=== PATIENT | male | born 1960 | race Two or more races ===

== ENCOUNTER 2025-03-30 21:12 | Inpatient (IN) | payer MEDICAID ==
[~2025-03-30] VITALS: Ht 165.1 cm; Wt 102.1 kg
[2025-03-30 22:11] LABS: ASPARTATE AMINOTRANSFERASE 57 U/L (15-37); CALCIUM, SERUM 7.9 mg/dL (8.5-10.1); CREATININE 1.1 mg/dL (0.6-1.3); SODIUM SERUM 134 mmol/L (136-145); TOTAL PROTEIN, SERUM 6.8 g/dL (6.4-8.2); UREA NITROGEN, BLOOD 10 mg/dL (7-18)
[2025-03-30 22:16] LABS: LACTIC ACID 3.0 mmol/L (0.4-2.0)
[2025-03-30] MEDS ORDERED: ACETAMINOPHEN 325 MG TABLET ONE (22:19)
[2025-03-30] MEDS: ACETAMINOPHEN 325 MG TABLET PO ONE (22:20)
[2025-03-30] MEDS ORDERED: ONDANSETRON HCL/PF 4 MG/2 ML VIAL ONE (22:25)
[2025-03-30] MEDS ORDERED: MORPHINE SULFATE INJ 4 MG/ML DISP.SYRIN ONE (22:25)
[2025-03-30 22:26] LABS: RED BLOOD CELL COUNT(AUTO) 4.98 MIL/uL (4.5-6.0); RED CELL DISTRIBUTION WIDTH 16.9 % (11.5-15.0); WHITE BLOOD COUNT (AUTO) 13.4 K/uL (4.3-11.0)
[2025-03-30 22:29] LABS: PLATELET COUNT (AUTO) 71 K/uL (150-450)
[2025-03-30] MEDS: IV NS 0.9% 1,000 ML BAG IV ONE (22:39)
[2025-03-30 22:40] LABS: INR 1.3 (0.91-1.10)
[2025-03-30] MEDS: MORPHINE SULFATE INJ 2 MG/ML DISP.SYRIN IV ONE (22:40)
[2025-03-30] MEDS: ONDANSETRON HCL/PF 4 MG/2 ML VIAL IV ONE (22:40)
[2025-03-30 22:45] LABS: LYMPHOCYTES % (MANUAL) 4 % (16-48); MONOCYTES % (MANUAL) 8 % (0-11.0); NEUTROPHILS % (MANUAL) 88 (42-76); PLATELET ESTIMATE DECREASED
[2025-03-30 23:22] LABS: APPEARANCE,URINE CLEAR (CLEAR); BLOOD, URINE 2+ Ery/uL (NEGATIVE); LEUKOCYTE ESTERASE ,URINE TRACE (NEGATIVE); NITRITE, URINE POSITIVE (NEGATIVE); UGLUCOSE NEGATIVE (NEGATIVE)
[2025-03-30 23:25] LABS: ADD URINE CULTURE YES
[2025-03-30] MEDS ORDERED: CIPROFLOXACIN IV RTU 200 ML IV ONE (23:30)
[2025-03-30] MEDS ORDERED: METRONIDAZOLE 500MG/ NS 100ML 100 ML IV ONE (23:30)
[2025-03-30] MEDS: FLAGYL/NS RTU 500 MG/100 ML PIGGYBACK IV ONE (23:30)
[2025-03-31] MEDS: CIPROFLOXACIN IV RTU 400 MG in PREMIX 1 EA IV SCH (00:11)
[2025-03-31 01:00] VITALS: BP 121/80; TEMP 98.2; O2SAT 21
[2025-03-31] MEDS ORDERED: MAG HYDROX/AL HYDROX/SIMETH 30 ML UDC PO PRN (01:00)
[2025-03-31] MEDS ORDERED: MORPHINE SULFATE INJ 4 MG/ML DISP.SYRIN IV PRN (01:00)
[2025-03-31] MEDS ORDERED: ONDANSETRON HCL/PF 4 MG/2 ML VIAL IVP PRN (01:00)
[2025-03-31] MEDS ORDERED: MAGNESIUM HYDROXIDE 30 ML UDC PO PRN (01:00)
[2025-03-31] MEDS ORDERED: ACETAMINOPHEN 325 MG TABLET PO PRN (01:00)
[2025-03-31] MEDS: PIPERACI/TAZO 3.375GM/D5W 50ML PB IV ONE ×2 (01:25→07:01)
[2025-03-31] MEDS: ZOSYN IVPB 3.375 G in IV D5W 50ml IV ONE (01:27)
[2025-03-31 04:00] VITALS: BP 129/77; TEMP 98.4; O2SAT 94
[2025-03-31 06:57] LABS: CALCIUM, SERUM 7.7 mg/dL (8.5-10.1); CREATININE 1.0 mg/dL (0.6-1.3); PHOSPHORUS 3.3 mg/dL (2.5-4.9); SODIUM SERUM 135.0 mmol/L (136-145); UREA NITROGEN, BLOOD 11.0 mg/dL (7-18)
[2025-03-31] MEDS: PIPERACILLIN /TAZOBACTAM 3.375 G in IV D5W 50 ML IV SCH (07:03)
[2025-03-31 08:00] VITALS: BP 114/71; TEMP 97.7; O2SAT 96
[2025-03-31 08:41] LABS: RED BLOOD CELL COUNT(AUTO) 4.83 MIL/uL (4.5-6.0); RED CELL DISTRIBUTION WIDTH 16.9 % (11.5-15.0); WHITE BLOOD COUNT (AUTO) 10.2 K/uL (4.3-11.0)
[2025-03-31 08:59] LABS: PLATELET COUNT (AUTO) 47 K/uL (150-450)
[2025-03-31] MEDS ORDERED: MORPHINE SULFATE INJ 2 MG/ML DISP.SYRIN IV PRN (09:00)
[2025-03-31] MEDS ORDERED: DOSING PER PHARMACY-ZOSYN IV 1 EA EA XX PRN (09:00)
[2025-03-31] MEDS: PANTOPRAZOLE 40 MG VIAL IV SCH (09:29)
[2025-03-31 10:19] LABS: LYMPHOCYTES % (MANUAL) 6 % (16-48); MONOCYTES % (MANUAL) 8 % (0-11.0); NEUTROPHILS % (MANUAL) 86 (42-76); PLATELET ESTIMATE GIANT PLATELET SEEN
[2025-03-31] MEDS ORDERED: CIPROFLOXACIN IV RTU 400 MG in PREMIX 1 EA IV SCH (12:00)
[2025-03-31 16:00] VITALS: BP 141/77; TEMP 98.4; O2SAT 95
[2025-03-31] MEDS: FUROSEMIDE 20 MG/2 ML VIAL IV ONE (18:51)
[2025-03-31 20:00] VITALS: BP 121/75; TEMP 99.3; O2SAT 99
[2025-04-01] VITALS (12 sets, daily range): BP systolic 99–125; BP diastolic 69–79; TEMP 98–99.3; O2SAT 93–98
[2025-04-01 07:57] LABS: CALCIUM, SERUM 7.5 mg/dL (8.5-10.1); CREATININE 1.0 mg/dL (0.6-1.3); SODIUM SERUM 138.0 mmol/L (136-145); UREA NITROGEN, BLOOD 15.0 mg/dL (7-18)
[2025-04-01 09:11] LABS: RED BLOOD CELL COUNT(AUTO) 4.60 MIL/uL (4.5-6.0); RED CELL DISTRIBUTION WIDTH 17.2 % (11.5-15.0); WHITE BLOOD COUNT (AUTO) 8.7 K/uL (4.3-11.0)
[2025-04-01 09:19] LABS: PLATELET COUNT (AUTO) 39 K/uL (150-450)
[2025-04-01 11:34] LABS: LYMPHOCYTES % (MANUAL) 10 % (16-48); MONOCYTES % (MANUAL) 12 % (0-11.0); NEUTROPHILS % (MANUAL) 78 (42-76); PLATELET ESTIMATE GIANT PLATELET SEEN
[2025-04-02] VITALS: BP 99/64; TEMP 98.1; O2SAT 96
[2025-04-02 04:00] VITALS: BP 109/62; TEMP 99; O2SAT 97
[2025-04-02 06:49] LABS: RED BLOOD CELL COUNT(AUTO) 4.66 MIL/uL (4.5-6.0); RED CELL DISTRIBUTION WIDTH 16.8 % (11.5-15.0); WHITE BLOOD COUNT (AUTO) 8.5 K/uL (4.3-11.0)
[2025-04-02 07:07] LABS: PLATELET COUNT (AUTO) 50 K/uL (150-450)
[2025-04-02 07:11] LABS: CALCIUM, SERUM 7.6 mg/dL (8.5-10.1); CREATININE 0.9 mg/dL (0.6-1.3); PHOSPHORUS 1.5 mg/dL (2.5-4.9); SODIUM SERUM 139.0 mmol/L (136-145); UREA NITROGEN, BLOOD 16.0 mg/dL (7-18)
[2025-04-02 07:43] LABS: EOSINOPHILS % (MANUAL) 2 % (0-4); LYMPHOCYTES % (MANUAL) 8 % (16-48); MONOCYTES % (MANUAL) 6 % (0-11.0); NEUTROPHILS % (MANUAL) 81 (42-76); PLATELET ESTIMATE GIANT PLATELET SEEN; REACTIVE LYMPHOCYTES 3 % (0-0)
[2025-04-02 08:00] VITALS: BP 113/67; TEMP 99.1; O2SAT 94
[2025-04-02] MEDS: PANTOPRAZOLE 40 MG TABLET.DR PO SCH (09:10)
[2025-04-02] MEDS ORDERED: POTASSIUM PHOSPHATE MM 15 MMOL in IV NS 0.9% 250 ML IV SCH (10:30)
[2025-04-02] MEDS: POTASSIUM PHOSPHATE MM 7.5 MMOL in IV NS 0.9% 100 ML IV SCH (12:24)
[2025-04-02 16:00] VITALS: BP 110/63; TEMP 100.1; O2SAT 96
[2025-04-02 16:33] LABS: HIV-1/2 ANTIBODY NON REACTIVE (NONREACTIVE)
[2025-04-02] MEDS: METRONIDAZOLE 500MG/ NS 100ML 500 MG in PREMIX 1 EA IV SCH (16:34)
[2025-04-02] MEDS: CEFTRIAXONE 2 G in IV D5W 100 ML IV SCH (17:25)
[2025-04-02 20:00] VITALS: BP 112/74; TEMP 98.4; O2SAT 97
[2025-04-03] VITALS: BP 116/65; TEMP 98.4; O2SAT 96
[2025-04-03 04:00] VITALS: BP 104/66; TEMP 98.2; O2SAT 95
[2025-04-03 06:24] LABS: PLATELET COUNT (AUTO) 78 K/uL (150-450); RED BLOOD CELL COUNT(AUTO) 5.22 MIL/uL (4.5-6.0); RED CELL DISTRIBUTION WIDTH 17.2 % (11.5-15.0); WHITE BLOOD COUNT (AUTO) 10.6 K/uL (4.3-11.0)
[2025-04-03 06:43] LABS: CALCIUM, SERUM 8.1 mg/dL (8.5-10.1); CREATININE 0.9 mg/dL (0.6-1.3); PHOSPHORUS 1.9 mg/dL (2.5-4.9); SODIUM SERUM 138.0 mmol/L (136-145); UREA NITROGEN, BLOOD 13.0 mg/dL (7-18)
[2025-04-03 07:00] VITALS: BP 103/69; TEMP 97.4; O2SAT 95
[2025-04-03 10:07] LABS: EOSINOPHILS % (MANUAL) 7 % (0-4); LYMPHOCYTES % (MANUAL) 18 % (16-48); MONOCYTES % (MANUAL) 6 % (0-11.0); NEUTROPHILS % (MANUAL) 69 (42-76); PLATELET ESTIMATE DECREASED
[2025-04-03 16:00] VITALS: BP 117/71; TEMP 98.7; O2SAT 96
[2025-04-03] MEDS: K PHOS NEUTRAL 250 MG TABLET PO ONE (16:01)
[2025-04-03 20:00] VITALS: BP_SYST 105; BP_SYST 109; BP_DIAS 70; BP_DIAS 73; TEMP 97.3; TEMP 98.2; O2SAT 98
[2025-04-03 21:06] VITALS: BP 105/73; TEMP 98.2; O2SAT 98
[2025-04-04] VITALS (7 sets, daily range): BP systolic 107–123; BP diastolic 65–78; TEMP 97.2–98.1; O2SAT 95–98
[2025-04-04 07:16] LABS: PLATELET COUNT (AUTO) 77 K/uL (150-450); RED BLOOD CELL COUNT(AUTO) 5.18 MIL/uL (4.5-6.0); RED CELL DISTRIBUTION WIDTH 17.6 % (11.5-15.0); WHITE BLOOD COUNT (AUTO) 8.7 K/uL (4.3-11.0)
[2025-04-04 07:51] LABS: CALCIUM, SERUM 7.9 mg/dL (8.5-10.1); CREATININE 0.8 mg/dL (0.6-1.3); PHOSPHORUS 2.1 mg/dL (2.5-4.9); SODIUM SERUM 139.0 mmol/L (136-145); UREA NITROGEN, BLOOD 11.0 mg/dL (7-18)
[2025-04-04 10:46] LABS: BASOPHILS % (MANUAL) 1 % (0.0-2.0); EOSINOPHILS % (MANUAL) 8 % (0-4); LYMPHOCYTES % (MANUAL) 13 % (16-48); MONOCYTES % (MANUAL) 7 % (0-11.0); NEUTROPHILS % (MANUAL) 71 (42-76)
[2025-04-04 10:47] LABS: PLATELET ESTIMATE DECREASED
[2025-04-04 11:38] LABS: INR 1.24 (0.91-1.10)
[2025-04-04] MEDS: METRONIDAZOLE 500 MG TABLET PO SCH (12:09)
[2025-04-04] MEDS: K PHOS NEUTRAL 250 MG TABLET PO ONE (15:18)
[2025-04-05] VITALS (7 sets, daily range): BP systolic 115–124; BP diastolic 61–73; TEMP 97.5–98.5; O2SAT 94–97
[2025-04-05 13:11] LABS: PROTEIN, BODY FLUID 1.3 G/DL
[2025-04-05 14:03] LABS: WBC, BODY FLUID 819 /cu. mm. (0-200)
[2025-04-05 14:37] LABS: APPEARANCE,SPUN,BODY FLUID CLEAR (CLEAR)
[2025-04-05 14:38] LABS: TOTAL VOLUME,BODY FLUID 1750 mL
[2025-04-06] VITALS: BP 113/73; TEMP 97.9; O2SAT 96
[2025-04-06 04:00] VITALS: BP 109/70; TEMP 97.9; O2SAT 96
[2025-04-06 08:12] VITALS: BP 109/73; TEMP 97.7; O2SAT 96
[2025-04-06] MEDS ORDERED: SULF1TAB48 PO (14:11)
[2025-04-06] MEDS ORDERED: SPIR100T5 PO (14:11)
[2025-04-06] MEDS ORDERED: PROP20TA7 PO (14:11)
[2025-04-06] MEDS ORDERED: BUME1TAB9 PO (14:11)
[2025-04-06] MEDS: K PHOS NEUTRAL 250 MG TABLET PO ONE (14:38)
[2025-04-06 16:38] VITALS: BP 116/77; TEMP 97.5; O2SAT 97
== END 2025-04-06 17:59 | disposition home or self-care (01) | DRG 720 ==
LOC: ER 21:16 → TELE 03-31 00:24 → MED 04-06 17:05
PROVIDERS: ADMIT Nurse Practitioner Acute Care; ATTEND Nurse Practitioner Acute Care
PROC: 30233R1 Transfusion of Nonautologous Platelets into Peripheral Vein, Percutaneous Approach (ICD-10-PCS; 2025-03-31)
PROC: 0W993ZZ Drainage of Right Pleural Cavity, Percutaneous Approach (ICD-10-PCS; principal; 2025-04-01)
PROC: 0W993ZZ Drainage of Right Pleural Cavity, Percutaneous Approach (ICD-10-PCS; 2025-04-05)
DX: A41.9 Sepsis, unspecified organism (principal); D84.9 Immunodeficiency, unspecified; J94.8 Other specified pleural conditions; E87.20 Acidosis, unspecified; D69.6 Thrombocytopenia, unspecified; E66.2 Morbid (severe) obesity with alveolar hypoventilation; E87.1 Hypo-osmolality and hyponatremia; K76.6 Portal hypertension; K74.60 Unspecified cirrhosis of liver; B96.20 Unspecified Escherichia coli [E. coli] as the cause of diseases classified elsewhere; N39.0 Urinary tract infection, site not specified; K52.9 Noninfective gastroenteritis and colitis, unspecified; J91.8 Pleural effusion in other conditions classified elsewhere; R65.20 Severe sepsis without septic shock; K70.9 Alcoholic liver disease, unspecified; N20.0 Calculus of kidney; R09.02 Hypoxemia; Z68.37 Body mass index [BMI] 37.0-37.9, adult; D69.59 Other secondary thrombocytopenia; F10.10 Alcohol abuse, uncomplicated; Y90.9 Presence of alcohol in blood, level not specified; J98.11 Atelectasis; K82.9 Disease of gallbladder, unspecified; E80.6 Other disorders of bilirubin metabolism; R16.1 Splenomegaly, not elsewhere classified
CPT/HCPCS: 36415; 71045-TC; 76705-TC; 80048-TC; 80076-TC; 81001; 83605-TC; 83615-TC; 83735-TC; 84100-TC; 85027-TC; 85610-TC; 85730-TC; 86803; 86850-TC; 87040-TC; 87070-TC; 87075-TC; 87086-TC; 87102-TC; 87186-TC; 87806; 89051-TC; 93307-TC; A4216; A4223; G0378; J0696; J0744; J1938; J2270; J2405; J2470; J2543; J3490; J7030; J7040; J7050; J7060; P9034

== ENCOUNTER 2025-04-08 12:12 | Emergency (ER) | payer MEDICAID ==
[~2025-04-08] VITALS: Ht 167.6 cm; Wt 98.4 kg
[~2025-04-08 12:12] MED LIST: BUME1TAB9 PO; PROP20TA7 PO; SPIR100T5 PO; SULF1TAB48 PO
[2025-04-08 12:44] LABS: PLATELET COUNT (AUTO) 180 K/uL (150-450); RED BLOOD CELL COUNT(AUTO) 5.54 MIL/uL (4.5-6.0); RED CELL DISTRIBUTION WIDTH 17.9 % (11.5-15.0); WHITE BLOOD COUNT (AUTO) 13.6 K/uL (4.3-11.0)
[2025-04-08 12:54] LABS: CALCIUM, SERUM 8.0 mg/dL (8.5-10.1); CREATININE 1.1 mg/dL (0.6-1.3); SODIUM SERUM 136.0 mmol/L (136-145); UREA NITROGEN, BLOOD 13.0 mg/dL (7-18)
[2025-04-08 12:59] LABS: ASPARTATE AMINOTRANSFERASE 46.0 U/L (15-37); TOTAL PROTEIN, SERUM 6.7 g/dL (6.4-8.2)
[2025-04-08 13:09] LABS: INR 1.34 (0.91-1.10)
[2025-04-08] MEDS ORDERED: ALBUMIN 25% 50 ML IV ONE (14:06)
[2025-04-08] MEDS: ALBUMIN 25% 12.5 GM/50 ML BOTTLE IV ONE (14:28)
[2025-04-08 16:20] VITALS: BP 98/63; TEMP 98.5; O2SAT 98
== END 2025-04-08 16:21 | disposition home or self-care (01) ==
LOC: ER 12:14
DX: R06.00 Dyspnea, unspecified (principal); J90 Pleural effusion, not elsewhere classified; R07.9 Chest pain, unspecified; Z79.2 Long term (current) use of antibiotics; Z79.899 Other long term (current) drug therapy; Z87.440 Personal history of urinary (tract) infections; Z98.890 Other specified postprocedural states; Z87.19 Personal history of other diseases of the digestive system
CPT/HCPCS: 36415; 71045-TC; 80048-TC; 80076-TC; 83690-TC; 85025-TC; 85730-TC; A4223; P9047